=== PATIENT | male | born 1995 | race Caucasian/White ===

== ENCOUNTER 2016-12-16 22:59 | Emergency (ER) | payer OTHER ==
[2016-12-16 23:00] VITALS: BP 146/88; PULSE 62; RESP 16; TEMP 98.7; O2SAT 99
== END 2016-12-16 23:08 | disposition left against medical advice (07) ==
LOC: NED 22:59
DX: Z53.21 Procedure and treatment not carried out due to patient leaving prior to being seen by health care provider (principal)
CPT/HCPCS: 99281